=== PATIENT | male | born 1990 | race African-American/Black ===

== ENCOUNTER → 2016-08-11 | Outpatient (CLI) | payer MEDICAID ==
[~2016-08-11] MED LIST: BUPR8SUB SL; DOLU1TAB4 PO; HIV med; HYDR-3366 PO; IBUP800T23 PO; INDO75CA3 PO; MORPHINE SULFATE 4 MG/ML INJ IV PUSH ONE; NAPR-576 PO; PRESCOBIX PO; SUBUTEX PO; TENO150T PO; WALKER/ADULT/FO1 MIS; XARE10TA PO
== END ==
LOC: HEDF 15:55
DX: M25.552 Pain in left hip (principal); V49.9XXA Car occupant (driver) (passenger) injured in unspecified traffic accident, initial encounter; Y92.488 Other paved roadways as the place of occurrence of the external cause; Y99.8 Other external cause status
CPT/HCPCS: A0431; A0436; J2270

== ENCOUNTER 2016-08-24 08:27 | Observation (INO) | payer MEDICAID ==
[~2016-08-24] VITALS: Ht 193 cm; Wt 82.0 kg
[~2016-08-24 08:27] MED LIST changes: -BUPR8SUB SL; -DOLU1TAB4 PO; -HYDR-3366 PO; -INDO75CA3 PO; -MORPHINE SULFATE 4 MG/ML INJ IV PUSH ONE; -PRESCOBIX PO; -SUBUTEX PO; -TENO150T PO; -WALKER/ADULT/FO1 MIS; -XARE10TA PO
[2016-08-24 08:39] VITALS: BP 120/79; PULSE 87; RESP 14; TEMP 98.2; O2SAT 98; O2SAT 99
[2016-08-24] MEDS ORDERED: PRESCOBIX PO (08:45)
[2016-08-24] MEDS ORDERED: DOLU1TAB4 PO (08:45)
[2016-08-24] MEDS ORDERED: SUBUTEX PO (08:45)
[2016-08-24] MEDS ORDERED: TENO150T PO (08:45)
[2016-08-24] MEDS ORDERED: KETOROLAC TROMETHAMINE 30 MG/ML (IVP) VIAL IV PUSH ONE (08:45)
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
--- NOTE | 2016-08-24 09:30 | RADRPT ---
EXAM DATE/TIME: 08/24/2016 09:03 [facility] COMPARISON: No previous studies available for comparison. INDICATIONS : Right tibia pain after falling in the shower today. MEDICAL HISTORY : None. SURGICAL HISTORY : None. ENCOUNTER: Initial ACUITY: 1 day PAIN SCORE: 10/10 LOCATION: Right mid tibia. FINDINGS: Two view examination of the right tibia demonstrates no evidence of fracture or dislocation. Bony mi neralization is normal. The soft tissue structures are intact. CONCLUSION: Negative trauma study. Niels Holder MD on August 24, 2016 at 9:28 Board Certified Radiologist. This report was verified electronically.
--- NOTE | 2016-08-24 09:33 | RADRPT ---
EXAM DATE/TIME: 08/24/2016 08:59 [facility] COMPARISON: TIBIA/FIBULA RIGHT (AP/LAT), August 24, 2016, 9:03. INDICATIONS : Right hip pain after falling in the shower. MEDICAL HISTORY : None. SURGICAL HISTORY : None. ENCOUNTER: Initial ACUITY: 1 day PAIN SCORE: 10/10 LOCATION: Right hip joint. FINDINGS: AP and crosstable lateral views of the right hip were obtained as well as an AP view the pelvis. This demonstrate a mildly comminuted fracture deformity involving the right superior pubic rami. There is an ill-defined oblique fracture line as well as a lateral fracture fragment which is mildly displace d. There is overlying soft tissue swelling. The femoral head and pubic rami are intact. CONCLUSION: Mildly comminuted fracture involving the right superior pubic rami. Niels Holder MD on August 24, 2016 at 9:29 Board Certified Radiologist. This report was verified electronically.
[2016-08-24] MEDS ORDERED: KETOROLAC TROMETHAMINE 60 MG/2 ML (IM) VIAL IM ONE (10:15)
--- NOTE | 2016-08-24 10:45 | RADRPT ---
EXAM DATE/TIME: 08/24/2016 08:59 [facility] COMPARISON: HIP RIGHT (AP&LAT 2/3VWS) W AP PELVIS, August 24, 2016, 8:59. INDICATIONS : Right femur pain, fall in shower. MEDICAL HISTORY : None. SURGICAL HISTORY : None. ENCOUNTER: Initial ACUITY: 1 day PAIN SCORE: 10/10 LOCATION: Right proximal femur FINDINGS: AP and lateral views of the right femur were obtained and again demonstrate a comminuted fracture inv olving the right superior acetabulum. The femur is intact with no evidence of fracture. CONCLUSION: 1. No evidence of femur fracture. 2. The previously noted right acetabular fracture is again visualized. Niels Holder MD on August 24, 2016 at 10:42 Board Certified Radiologist. This report was verified electronically.
[2016-08-24 12:49] VITALS: BP 110/77; PULSE 86; RESP 16; O2SAT 97
--- NOTE | 2016-08-24 12:59 | RADRPT ---
EXAM DATE/TIME: 08/24/2016 12:31 [facility] COMPARISON: FEMUR RIGHT (AP & LAT/2VWS), August 24, 2016, 8:59. INDICATIONS : Right hip pain after trauma secondary to fall. Right acetabular fracture seen on plain film.. RADIATION DOSE: 29.94 CTDIvol (mGy) MEDICAL HISTORY : HIV. SURGICAL HISTORY : None. ENCOUNTER: Initial ACUITY: 1 day PAIN SCALE: 8/10 LOCATION: Right hip TECHNIQUE: Volumetric scanning of the hip was performed. Using automated exposure control and adjustment of the mA and/or kV according to patient size, radiation dose was kept as low as reasonably achievable to o btain optimal diagnostic quality images. FINDINGS: BONES: The known comminuted fracture of the right superior acetabulum is noted with a displaced fragment whi ch is rotated posteriorly and medially approximately 2 cm. The fragment measures up to approximately 3 x 1 cm. There are additional nondisplaced fracture lines through the superior medial and superior l ateral acetabulum. The pubic rami are intact. The femoral head is intact as well. JOINTS: No evidence of joint narrowing or effusion. SOFT TISSUES: Muscles, tendons and neurovascular structures are grossly unremarkable. No evidence of mass or foreig n body. There is a hematoma surrounding the acetabular fracture. CONCLUSION: Comminuted fracture of the superior acetabulum with displaced fragment. Niels Holder MD on August 24, 2016 at 12:54 Board Certified Radiologist. This report was verified electronically.
[2016-08-24 14:04] LABS: AUTOMATED NEUTROPHIL # 3.6 TH/MM3 (1.8-7.7); BASOPHIL % 0.6 % (0.0-2.0); EOSINOPHIL # 0.4 TH/MM3 (0-0.4); EOSINOPHIL % 5.5 % (0.0-4.0); HEMATOCRIT 33.3 % (39.0-51.0); HEMO FLAGS DIFF FINAL; LYMPH % 34.6 % (9.0-44.0); LYMPHOCYTE # 2.5 TH/MM3 (1.0-4.8); MEAN CELL VOLUME 87.3 FL (80.0-100.0); MEAN CORPUSCULAR HEMOGLOBIN 29.9 PG (27.0-34.0); MEAN CORPUSCULAR HGB CONC 34.3 % (32.0-36.0); MONO % 8.4 % (0.0-8.0); NEUT % 50.9 % (16.0-70.0); PLATELET COUNT 407 TH/MM3 (150-450); RED BLOOD COUNT 3.81 MIL/MM3 (4.50-5.90); RED CELL DISTRIBUTION WIDTH 13.4 % (11.6-17.2); WHITE BLOOD COUNT 7.1 TH/MM3 (4.0-11.0)
[2016-08-24 14:22] LABS: BICARBONATE 27.8 MEQ/L (21.0-32.0); POTASSIUM 4.4 MEQ/L (3.5-5.1)
[2016-08-24] MEDS ORDERED: oxyCODONE/ACETAMINOPHEN 5 MG/325 MG TAB PO ONE (17:30)
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
== END 2016-08-24 18:31 | disposition left against medical advice (07) ==
LOC: NEPC 08:27 → NEDA 16:47
PROVIDERS: ADMIT Internal Medicine; ATTEND Internal Medicine
DX: S32.401A Unspecified fracture of right acetabulum, initial encounter for closed fracture (principal); B20 Human immunodeficiency virus [HIV] disease; F12.90 Cannabis use, unspecified, uncomplicated; F17.210 Nicotine dependence, cigarettes, uncomplicated; F31.9 Bipolar disorder, unspecified; W18.2XXA Fall in (into) shower or empty bathtub, initial encounter; Y93.E1 Activity, personal bathing and showering
CPT/HCPCS: 73502; 73552; 73590; 73700; 80048; 85025; 86850; 86900; 86901; 96372; G0378; J1885

== ENCOUNTER 2016-08-24 23:38 | Inpatient (IN) | payer MEDICAID ==
[~2016-08-24] VITALS: Ht 193 cm; Wt 82.6 kg
[~2016-08-24 23:38] MED LIST changes: +DOLU1TAB4 PO; +PRESCOBIX PO; +SUBUTEX PO; +TENO150T PO
[2016-08-24 23:47] VITALS: BP 123/71; PULSE 80; RESP 16; TEMP 98.3; O2SAT 98
[2016-08-25] MEDS ORDERED: KETOROLAC TROMETHAMINE 30 MG/ML (IVP) VIAL IVP ONE (00:30)
[2016-08-25] MEDS ORDERED: SODIUM CHLORIDE 0.9% FLUSH 10 ML FLUSH IV FLUSH PRN ×2 (00:30→01:00)
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
--- NOTE | 2016-08-25 00:47 | RADRPT ---
EXAM DATE/TIME: 08/25/2016 00:13 [facility] COMPARISON: FEMUR RIGHT (AP & LAT/2VWS), August 24, 2016, 8:59. INDICATIONS : Fall. Already had xrays done earlier today, previous fracture. MEDICAL HISTORY : None. SURGICAL HISTORY : None. ENCOUNTER: Subsequent ACUITY: 3 days PAIN SCORE: 5/10 LOCATION: Right hip FINDINGS: A two view examination of the right hip was performed. There's been no significant change with The position and alignment of the fractures involving the right acetabulum. There continues to be goo d alignment at the right hip joint. No significant change compared to the prior earlier x-rays of the right hip. CONCLUSION: No significant change with the alignment and position of the fractures involving the right acetabulum . Benny Velasco MD on August 25, 2016 at 0:44 Board Certified Radiologist. This report was verified electronically.
[2016-08-25 01:00] VITALS: RESP 20; O2SAT 99
[2016-08-25] MEDS ORDERED: MORPHINE SULFATE 4 MG/ML INJ IV PUSH PRN ×2 (01:00→11:30)
[2016-08-25] MEDS ORDERED: NALOXONE HCL 0.4 MG/ML AMP IV PRN ×2 (01:00→11:30)
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
[2016-08-25 06:23] VITALS: BP 106/57; PULSE 70; RESP 20; O2SAT 96
[2016-08-25] MEDS: LORazepam 2 MG/ML VIAL IV PUSH PRN ×2 (06:46→16:09)
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
[2016-08-25] MEDS ORDERED: MIDAZOLAM HCL 2 MG/2 ML VIAL ONE ×2 (07:22→12:06)
[2016-08-25] MEDS ORDERED: HYDROmorphone HCL PF 2 MG/ML VIAL ONE ×2 (07:22→12:14)
[2016-08-25] MEDS ORDERED: ACETAMINOPHEN 1000 MG/100 ML VIAL IV ONE (07:22)
[2016-08-25] MEDS ORDERED: FAMOTIDINE 20 MG/2 ML VIAL ONE (07:22)
[2016-08-25] MEDS ORDERED: fentaNYL CITRATE 250 MCG/5 ML AMP ONE (07:22)
[2016-08-25] MEDS ORDERED: TRANEXAMIC ACID INJ 1,230 MG in SODIUM CHLORIDE 0.9% INJ 100 ML IV SCH (07:30)
[2016-08-25] MEDS ORDERED: CLINDAMYCIN PHOS 900 MG/6 ML VIAL ONE (08:19)
[2016-08-25] MEDS ORDERED: ceFAZolin 2 GM PREMIX 50 ML ONE (08:19)
[2016-08-25] MEDS: SODIUM CHLORIDE 0.9% FLUSH 10 ML FLUSH IV FLUSH SCH ×2 (09:00→21:00)
[2016-08-25] MEDS ORDERED: GENTAMICIN SULFATE 80 MG/2 ML VIAL ONE (09:40)
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
[2016-08-25] MEDS ORDERED: ACETAMINOPHEN/HYDROcodone 325 MG/10 MG TAB PO PRN (11:30)
[2016-08-25] MEDS ORDERED: MISCELLANEOUS NURSING INFORMATION XX PRN (11:30)
[2016-08-25] MEDS ORDERED: MISCELLANEOUS PHARMACY INFORMATION XX ONE (11:30)
[2016-08-25] MEDS ORDERED: ePHEDrine/NS 25 MG/5 ML SYR IV ONE (11:46)
[2016-08-25] MEDS ORDERED: NEOSTIGMINE 3 MG/3 ML SYR IV ONE (11:46)
[2016-08-25] MEDS ORDERED: PROPOFOL 200 MG/20 ML AMP IV ONE (11:46)
[2016-08-25] MEDS ORDERED: ONDANSETRON HCL 4 MG/2 ML VIAL IV PUSH ONE (11:46)
[2016-08-25] MEDS ORDERED: LACTATED RINGER'S 1000 ML INJ 2,000 ML IV ONE (11:47)
[2016-08-25] MEDS ORDERED: *MEPERIDINE 25 MG INJ VIAL PERIprocedural Use ONLY ONE (11:54)
[2016-08-25] MEDS ORDERED: *hydrOXYzine 25 MG VIAL PERIprocedural Use ONLY IM ONE (11:55)
[2016-08-25] MEDS ORDERED: LORazepam 2 MG/ML VIAL ONE (11:58)
[2016-08-25] MEDS ORDERED: *morphine SULFATE 8 MG/ML PERIprocedure ONLY ONE ×2 (12:02→12:12)
--- NOTE | 2016-08-25 12:32 | RADRPT ---
EXAM DATE/TIME: 08/25/2016 10:47 [facility] COMPARISON: HIP RIGHT (AP&LAT 2/3VWS) W AP PELVIS, August 24, 2016, 8:59. INDICATIONS : ORIF right acetabulum. MEDICAL HISTORY : None. SURGICAL HISTORY : None. ENCOUNTER: Subsequent ACUITY: 2 days PAIN SCORE: Non-responsive. LOCATION: Right acetabulum. FINDINGS: Multiple coned down views of the right hip and pelvis were obtained and demonstrate interval placemen t of 3 screw-plate fixation devices transfixing the right acetabular fracture. The fracture fragments are in near-anatomic alignment. CONCLUSION: Status post open a rigid internal fixation. Niels Holder MD on August 25, 2016 at 12:27 Board Certified Radiologist. This report was verified electronically.
[2016-08-25] MEDS: LACTATED RINGER'S 1000 ML INJ 1,000 ML IV SCH ×2 (12:55→21:18)
[2016-08-25] MEDS: MORPHINE SULFATE 30 MG/30 ML PCA IV SCH ×3 (12:55→21:50)
[2016-08-25] MEDS ORDERED: *HYDROmorphone PF 1 MG VIAL PERIprocedural Use ONLY ONE ×2 (13:09→13:25)
[2016-08-25] MEDS: ceFAZolin 2 GM PREMIX 50 ML IV SCH ×2 (13:10→19:40)
[2016-08-25] MEDS ORDERED: MORPHINE SULFATE 4 MG/ML INJ ONE (13:13)
[2016-08-25] MEDS: PCA - TOTAL MG MORPHINE DELIVERED PER SHIFT SCH ×2 (14:00→21:50)
--- NOTE | 2016-08-25 15:18 | HHI.PR ---
Addendum to Inpatient Note Addendum Reason: Additional Documentation Additional Information Patient was seen and examined by me. The patient complains of right hip pain. Patient is awake alert oriented 3, not in acute distress, somnolent. Lungs are clear bilaterally. S1-S2 regular rate and rhythm without murmurs rubs or gallops audible. Abdomen is soft, nontender. There is no edema in bilateral extremities and pedal pulses are intact and palpable. The patient status post ORIF of the right acetabulum. Continue pain control as per orthopedic surgery recommendations. The patient currently on a morphine pump. Blood pressure slightly elevated secondary most pain. Continue to monitor vital signs. Will check labs in a.m. Cong Christianson MD Aug 25, 2016 15:18
[2016-08-25 15:46] VITALS: BP 130/75; PULSE 72; RESP 16; TEMP 96.9; O2SAT 100
[2016-08-25] MEDS: KETOROLAC TROMETHAMINE 30 MG/ML (IVP) VIAL IV PUSH PRN (16:09)
[2016-08-25] MEDS: ACETAMINOPHEN/HYDROcodone 325 MG/10 MG TAB PO PRN (19:41)
[2016-08-25 20:05] VITALS: BP 122/63; PULSE 96; RESP 20; TEMP 96.3; O2SAT 100
[2016-08-25 20:08] VITALS: PULSE 83
[2016-08-26 00:46] VITALS: BP 137/66; PULSE 76; RESP 20; TEMP 97.2; O2SAT 100
[2016-08-26] MEDS: KETOROLAC TROMETHAMINE 30 MG/ML (IVP) VIAL IV PUSH PRN ×4 (00:48→22:55)
[2016-08-26] MEDS: LORazepam 2 MG/ML VIAL IV PUSH PRN ×3 (00:49→19:31)
[2016-08-26 04:11] VITALS: BP 112/58; PULSE 78; RESP 19; TEMP 97.9; O2SAT 99
[2016-08-26] MEDS: ceFAZolin 2 GM PREMIX 50 ML IV SCH ×3 (04:39→21:29)
[2016-08-26] MEDS: ACETAMINOPHEN/HYDROcodone 325 MG/10 MG TAB PO PRN ×4 (04:40→22:55)
[2016-08-26] MEDS: PCA - TOTAL MG MORPHINE DELIVERED PER SHIFT SCH ×3 (05:08→19:29)
[2016-08-26 05:57] LABS: HEMATOCRIT 29.7 % (39.0-51.0); MEAN CELL VOLUME 88.2 FL (80.0-100.0); MEAN CORPUSCULAR HEMOGLOBIN 29.2 PG (27.0-34.0); MEAN CORPUSCULAR HGB CONC 33.1 % (32.0-36.0); PLATELET COUNT 388 TH/MM3 (150-450); RED BLOOD COUNT 3.36 MIL/MM3 (4.50-5.90); RED CELL DISTRIBUTION WIDTH 13.1 % (11.6-17.2); REVIEW FLAG FINAL; WHITE BLOOD COUNT 10.4 TH/MM3 (4.0-11.0)
[2016-08-26 06:31] LABS: BICARBONATE 31.7 MEQ/L (21.0-32.0); MAGNESIUM 2.3 MG/DL (1.5-2.5); POTASSIUM 3.9 MEQ/L (3.5-5.1)
--- NOTE | 2016-08-26 06:48 | PD.ORT.PN ---
Subjective Subjective Remarks POD 1 s/p ORIF right acetabulum doing well. reports pain in right hip and has not been out of bed yet Objective Vitals Vital Signs Date Time Temp Pulse Resp B/P Pulse Ox O2 Delivery O2 Flow Rate FiO2 08/26/16 05:08 20 08/26/16 04:11 97.9 78 19 112/58 99 08/26/16 00:46 97.2 76 20 137/66 100 08/25/16 21:50 7 08/25/16 21:50 18 08/25/16 20:08 83 08/25/16 20:05 96.3 96 20 122/63 100 08/25/16 16:20 16 08/25/16 15:46 96.9 72 16 130/75 100 08/25/16 14:00 78 18 148/91 100 Nasal Cannula 2 08/25/16 13:30 80 18 144/88 100 Nasal Cannula 2 08/25/16 13:15 91 20 150/88 100 Nasal Cannula 3 08/25/16 13:00 98.5 85 22 136/84 100 Nasal Cannula 3 08/25/16 12:55 20 08/25/16 12:45 60 15 159/92 96 Nasal Cannula 3 08/25/16 12:30 62 24 161/88 100 Nasal Cannula 3 08/25/16 12:15 78 28 143/88 100 Nasal Cannula 3 08/25/16 12:00 90 36 154/110 100 Nasal Cannula 3 08/25/16 11:48 98.4 82 16 151/102 100 Nasal Cannula 3 I/O 08/25/16 08/25/16 08/25/16 08/26/16 08/26/16 08/26/16 07:00 15:00 23:00 07:00 15:00 23:00 Intake Total 2200 ml 810 ml 240 ml Output Total 1665 ml 1995 ml 15 ml Balance 535 ml -1185 ml 225 ml Intake Oral 480 ml IV Total 200 ml 330 ml 240 ml Other 2000 ml Output Urine Total 1450 ml 1975 ml Drainage Total 15 ml 20 ml 15 ml Estimated Blood Loss 200 ml # Bowel Movements 0 Result Diagram: 08/26/16 0527 08/26/16 0527 Imaging Last 24 hours Impressions Hip X-Ray 08/25/16 0000 Signed Impressions: Service Date/Time: Thursday, August 25, 2016 00:13 - CONCLUSION: No significant change with the alignment and position of the fractures involving the right acetabulum. Benny Velasco MD Objective Remarks RLE: dressings clean and dry.intact. + drain. NVI Assessment & Plan Assessment and Plan 1) Right Acetabulum Fx s/p ORIF - POD 1 -TTWB -daily dressing changes POD 2 -knee brace while in bed -posterior hip precautions -plan for DC home satu/sun -Indomethacin 75mg 1 PO daily x 6 weeks -f/u with [facility] or [facility] in 2 weeks Daljit Vivas Aug 26, 2016 06:48
[2016-08-26] MEDS ORDERED: WALKER/ADULT/FO1 MIS (06:50)
[2016-08-26] MEDS ORDERED: XARE10TA PO (06:50)
[2016-08-26] MEDS ORDERED: HYDR-3366 PO (06:52)
[2016-08-26] MEDS ORDERED: INDO75CA3 PO (06:52)
[2016-08-26] MEDS: LACTATED RINGER'S 1000 ML INJ 1,000 ML IV SCH ×2 (07:18→17:18)
[2016-08-26 08:00] VITALS: BP 140/75; PULSE 81; RESP 16; TEMP 97.6; O2SAT 99
[2016-08-26] MEDS: INDOMETHACIN 75 MG CONTROLLED RELEASE CAP PO SCH (09:24)
[2016-08-26] MEDS: SODIUM CHLORIDE 0.9% FLUSH 10 ML FLUSH IV FLUSH SCH ×2 (09:28→19:29)
[2016-08-26] MEDS: MORPHINE SULFATE 30 MG/30 ML PCA IV SCH ×2 (09:33→21:32)
[2016-08-26] MEDS: ENOXAPARIN SODIUM 30 MG/0.3 ML SYRINGE SQ SCH ×2 (10:35→21:29)
[2016-08-26 12:00] VITALS: BP 129/78; PULSE 77; RESP 16; TEMP 97.8; O2SAT 96
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
[2016-08-26 19:09] VITALS: BP 118/63; PULSE 82; RESP 16; TEMP 98; O2SAT 99
[2016-08-26 20:00] VITALS: BP 138/81; PULSE 79; RESP 18; TEMP 97.9; O2SAT 100
[2016-08-26] MEDS ORDERED: BUPR8SUB SL (21:43)
[2016-08-27] VITALS: BP 118/58; PULSE 66; RESP 17; TEMP 98; O2SAT 98
[2016-08-27] MEDS: LACTATED RINGER'S 1000 ML INJ 1,000 ML IV SCH ×2 (00:13→13:18)
[2016-08-27] MEDS: LORazepam 2 MG/ML VIAL IV PUSH PRN ×3 (03:29→23:38)
[2016-08-27 04:00] VITALS: BP 116/69; PULSE 85; RESP 16; TEMP 97.2; O2SAT 98
[2016-08-27] MEDS: ceFAZolin 2 GM PREMIX 50 ML IV SCH ×3 (05:04→19:36)
[2016-08-27] MEDS: ACETAMINOPHEN/HYDROcodone 325 MG/10 MG TAB PO PRN ×4 (05:05→23:38)
[2016-08-27] MEDS: KETOROLAC TROMETHAMINE 30 MG/ML (IVP) VIAL IV PUSH PRN ×4 (05:05→23:38)
[2016-08-27] MEDS: PCA - TOTAL MG MORPHINE DELIVERED PER SHIFT SCH ×3 (05:05→22:00)
--- NOTE | 2016-08-27 06:56 | PD.ORT.PN ---
Subjective Subjective Remarks Austin is postop day #2 status post open reduction internal fixation of right acetabular fracture. Pain is relatively well controlled. He is resting comfortably. Objective Vitals Vital Signs Date Time Temp Pulse Resp B/P Pulse Ox O2 Delivery O2 Flow Rate FiO2 08/27/16 05:05 18 08/27/16 04:00 97.2 85 16 116/69 98 08/27/16 00:00 98.0 66 17 118/58 98 08/26/16 21:40 18 08/26/16 21:32 18 08/26/16 20:00 97.9 79 18 138/81 100 08/26/16 19:29 18 08/26/16 19:09 98.0 82 16 118/63 99 08/26/16 18:48 Room Air 08/26/16 14:00 16 08/26/16 12:00 97.8 77 16 129/78 96 08/26/16 09:33 16 08/26/16 08:00 97.6 81 16 140/75 99 I/O 08/26/16 08/26/16 08/26/16 08/27/16 08/27/16 08/27/16 07:00 15:00 23:00 07:00 15:00 23:00 Intake Total 480 ml 600 ml 1154 ml 1081 ml Output Total 565 ml 525 ml 50 ml Balance -85 ml 600 ml 629 ml 1031 ml Intake Oral 240 ml 600 ml 720 ml 720 ml IV Total 240 ml 434 ml 361 ml Output Urine Total 550 ml 500 ml Drainage Total 15 ml 25 ml 50 ml # Voids 4 2 # Bowel Movements 0 0 Result Diagram: 08/26/16 0527 08/26/16 0527 Imaging Last 24 hours Impressions Hip X-Ray 08/25/16 0000 Signed Impressions: Service Date/Time: Thursday, August 25, 2016 00:13 - CONCLUSION: No significant change with the alignment and position of the fractures involving the right acetabulum. Benny Velasco MD Objective Remarks RLE: dressings clean and dry.intact. + drain. NVI. He is able to actively dorsiflex and plantarflex his ankle. Assessment & Plan Assessment and Plan 1) Right Acetabulum Fx s/p ORIF - POD 2 -TTWB -daily dressing changes POD 2--DC drain today -knee brace while in bed -posterior hip precautions -plan for DC home tue or Tuesday -Indomethacin 75mg 1 PO daily x 6 weeks -f/u with [facility] or [facility] in 2 weeks -Jonnathan Pate MD Aug 27, 2016 06:56
[2016-08-27] MEDS ORDERED: diphenhydrAMINE HCL 25 MG CAP PO PRN (07:00)
[2016-08-27 07:42] VITALS: BP 126/74; PULSE 82; RESP 17; TEMP 96.7; O2SAT 98
[2016-08-27] MEDS: INDOMETHACIN 75 MG CONTROLLED RELEASE CAP PO SCH (07:51)
[2016-08-27] MEDS: SODIUM CHLORIDE 0.9% FLUSH 10 ML FLUSH IV FLUSH SCH ×2 (07:52→19:36)
[2016-08-27] MEDS: ENOXAPARIN SODIUM 30 MG/0.3 ML SYRINGE SQ SCH ×2 (11:06→23:37)
[2016-08-27 11:31] VITALS: BP 131/73; PULSE 80; RESP 17; TEMP 97.7; O2SAT 98
[2016-08-27] MEDS: MORPHINE SULFATE 30 MG/30 ML PCA IV SCH (13:13)
[2016-08-27 15:58] VITALS: BP 107/54; PULSE 73; RESP 17; TEMP 96.5; O2SAT 96
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
[2016-08-27 19:00] VITALS: BP 132/84; PULSE 92; RESP 17; TEMP 98.6; O2SAT 98
[2016-08-28] VITALS: BP 136/71; PULSE 59; RESP 16; TEMP 96.1; O2SAT 95
[2016-08-28 04:00] VITALS: BP 123/62; PULSE 78; RESP 16; TEMP 96.1; O2SAT 99
[2016-08-28] MEDS: ceFAZolin 2 GM PREMIX 50 ML IV SCH (05:09)
[2016-08-28] MEDS: KETOROLAC TROMETHAMINE 30 MG/ML (IVP) VIAL IV PUSH PRN (05:09)
[2016-08-28] MEDS: ACETAMINOPHEN/HYDROcodone 325 MG/10 MG TAB PO PRN (05:09)
[2016-08-28] MEDS: PCA - TOTAL MG MORPHINE DELIVERED PER SHIFT SCH (06:00)
--- NOTE | 2016-08-28 06:33 | PD.ORT.PN ---
Subjective Subjective Remarks pt sleeping comfortably upon entering room once awake, no complaints other than pain Objective Vitals Vital Signs Date Time Temp Pulse Resp B/P Pulse Ox O2 Delivery O2 Flow Rate FiO2 08/28/16 06:00 17 08/28/16 04:00 96.1 78 16 123/62 99 08/28/16 00:00 96.1 59 16 136/71 95 08/27/16 22:00 17 08/27/16 19:00 98.6 92 17 132/84 98 08/27/16 15:58 96.5 73 17 107/54 96 08/27/16 11:31 97.7 80 17 131/73 98 08/27/16 07:42 96.7 82 17 126/74 98 I/O 08/27/16 08/27/16 08/27/16 08/28/16 08/28/16 08/28/16 07:00 15:00 23:00 07:00 15:00 23:00 Intake Total 1081 ml 480 ml 480 ml 480 ml Output Total 50 ml 450 ml 900 ml 200 ml Balance 1031 ml 30 ml -420 ml 280 ml Intake Oral 720 ml 480 ml 480 ml 480 ml IV Total 361 ml Output Urine Total 450 ml 900 ml 200 ml Drainage Total 50 ml # Voids 2 # Bowel Movements 0 0 0 Result Diagram: 08/26/16 0527 08/26/16 0527 Imaging Last 24 hours Impressions Hip X-Ray 08/25/16 0000 Signed Impressions: Service Date/Time: Thursday, August 25, 2016 00:13 - CONCLUSION: No significant change with the alignment and position of the fractures involving the right acetabulum. Benny Velasco MD Objective Remarks seen by Dr. Parish Frazier RLE: dressings clean and dry, intact +NVI. Assessment & Plan Assessment and Plan 1) Right Acetabulum Fx s/p ORIF - POD 3 -TTWB -daily dressing change -knee brace while in bed -posterior hip precautions -plan for DC home tue or Tuesday -Indomethacin 75mg 1 PO daily x 6 weeks -f/u with [facility] or [facility] in 2 weeks -Sharon Aguilar Aug 28, 2016 06:33
[2016-08-28 07:35] VITALS: BP 100/51; PULSE 77; RESP 17; TEMP 97.6; O2SAT 98
[2016-08-28] MEDS: SODIUM CHLORIDE 0.9% FLUSH 10 ML FLUSH IV FLUSH SCH (09:00)
[2016-08-28] MEDS: LACTATED RINGER'S 1000 ML INJ 1,000 ML IV SCH (09:18)
[2016-08-28] MEDS: ENOXAPARIN SODIUM 30 MG/0.3 ML SYRINGE SQ SCH (10:47)
[2016-08-28] MEDS: INDOMETHACIN 75 MG CONTROLLED RELEASE CAP PO SCH (10:47)
[2016-08-28] MEDS: MORPHINE SULFATE 30 MG/30 ML PCA IV SCH (10:51)
[2016-08-28 11:59] VITALS: BP 124/69; PULSE 74; RESP 17; TEMP 97.5; O2SAT 98
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
== END 2016-08-28 13:25 | disposition left against medical advice (07) | DRG 517 ==
LOC: NEPD 23:38 → NEDA 08-25 00:59 → N06B 08-25 14:36 → OBSVTOIN 08-25 15:15
PROVIDERS: ADMIT Hospitalist; ATTEND Hospitalist
PROC: 0QS404Z Reposition Right Acetabulum with Internal Fixation Device, Open Approach (ICD-10-PCS; principal; 2016-08-25 09:04)
DX: S32.441A Displaced fracture of posterior column [ilioischial] of right acetabulum, initial encounter for closed fracture (principal); S32.591D Other specified fracture of right pubis, subsequent encounter for fracture with routine healing; F31.9 Bipolar disorder, unspecified; V49.9XXA Car occupant (driver) (passenger) injured in unspecified traffic accident, initial encounter; Y92.410 Unspecified street and highway as the place of occurrence of the external cause; Y93.9 Activity, unspecified; Y99.9 Unspecified external cause status; F90.9 Attention-deficit hyperactivity disorder, unspecified type; Z88.1 Allergy status to other antibiotic agents; Z21 Asymptomatic human immunodeficiency virus [HIV] infection status; F42.9 Obsessive-compulsive disorder, unspecified; F43.10 Post-traumatic stress disorder, unspecified; R29.6 Repeated falls; R20.0 Anesthesia of skin; F17.210 Nicotine dependence, cigarettes, uncomplicated; W18.2XXA Fall in (into) shower or empty bathtub, initial encounter; Y93.E1 Activity, personal bathing and showering; Z76.5 Malingerer [conscious simulation]
CPT/HCPCS: 73502; 73503; 73552; 73590; 73700; 76000; 80048; 80307; 83735; 84100; 85025; 85027; 86850; 86900; 86901; 94150; 96372; 96374; C1713; G0378; J0131; J0690; J1170; J1580; J1650; J1885; J2060; J2175; J2250; J2270; J2405; J2710; J3010; J3410; J7120

== ENCOUNTER 2017-03-24 20:43 | Emergency (ER) | payer MEDICAID ==
[~2017-03-24 20:43] MED LIST changes: +BUPR8SUB SL; -DOLU1TAB4 PO; -HIV med; +HYDR-3366 PO; -IBUP800T23 PO; +INDO75CA3 PO; -NAPR-576 PO; -PRESCOBIX PO; -TENO150T PO; +WALKER/ADULT/FO1 MIS; +XARE10TA PO
[2017-03-24 20:47] VITALS: BP 119/59; PULSE 94; RESP 16; TEMP 99.5; O2SAT 97
== END 2017-03-24 20:54 | disposition left against medical advice (07) ==
LOC: NED 20:43
DX: Z00.8 Encounter for other general examination (principal); Z53.21 Procedure and treatment not carried out due to patient leaving prior to being seen by health care provider

== ENCOUNTER 2017-06-15 00:32 | Emergency (ER) | payer MEDICAID ==
[~2017-06-15] VITALS: Ht 193 cm; Wt 82.0 kg
[2017-06-15] MEDS ORDERED: KETOROLAC TROMETHAMINE 30 MG/ML (IVP) VIAL IV PUSH ONE (00:45)
[2017-06-15] MEDS ORDERED: MORPHINE SULFATE 2 MG/ML INJ IV PUSH ONE (00:45)
[2017-06-15 00:49] VITALS: BP 147/91; PULSE 72; RESP 22; TEMP 98.7; O2SAT 100
--- NOTE | 2017-06-15 01:13 | RADRPT ---
EXAM DATE/TIME: 06/15/2017 00:51 [facility] COMPARISON: SHOULDER RIGHT LTD (2VWS), November 29, 2015, 16:10. INDICATIONS : Right shoulder pain post fall. MEDICAL HISTORY : HIV SURGICAL HISTORY : ORIF right acetabulum ENCOUNTER: Initial ACUITY: 1 day PAIN SCORE: 10/10 LOCATION: Right upper extremity FINDINGS: Two view examination of the right shoulder demonstrates no evidence of fracture or dislocation. The glenohumeral and acromioclavicular joints are maintained. Bony mineralization is normal. CONCLUSION: No acute disease. Dereck Freeman MD on June 15, 2017 at 1:11 Board Certified Radiologist. This report was verified electronically.
--- NOTE | 2017-06-15 01:14 | RADRPT ---
EXAM DATE/TIME: 06/15/2017 00:56 [facility] COMPARISON: No previous studies available for comparison. INDICATIONS : Right elbow pain post fall. MEDICAL HISTORY : HIV SURGICAL HISTORY : ORIF right acetabulum ENCOUNTER: Initial ACUITY: 1 day PAIN SCORE: 10/10 LOCATION: Right upper extremity FINDINGS: Anterior and posterior fat pad signs are identified characteristic of elbow joint effusion. A nondisp laced radial head fracture is suspected and can be confirmed with CT. CONCLUSION: Elbow joint effusion and findings suspect for radial head fracture. CT would be helpful for confirmat ion. Dereck Freeman MD on June 15, 2017 at 1:11 Board Certified Radiologist. This report was verified electronically.
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
== END 2017-06-15 02:39 | disposition home or self-care (01) ==
LOC: NEPC 00:32
DX: S46.911A Strain of unspecified muscle, fascia and tendon at shoulder and upper arm level, right arm, initial encounter (principal); M25.421 Effusion, right elbow; F90.9 Attention-deficit hyperactivity disorder, unspecified type; F31.9 Bipolar disorder, unspecified; F41.9 Anxiety disorder, unspecified; F17.210 Nicotine dependence, cigarettes, uncomplicated; Z21 Asymptomatic human immunodeficiency virus [HIV] infection status; V18.4XXA Pedal cycle driver injured in noncollision transport accident in traffic accident, initial encounter
CPT/HCPCS: 73030; 73070; 96374; 96375; 99284; J1885; J2270

== ENCOUNTER 2017-09-13 03:53 | Observation (INO) | payer MEDICAID ==
[2017-09-13 03:55] VITALS: BP 141/91; PULSE 76; RESP 15; TEMP 99.5; O2SAT 98
[2017-09-13] MEDS ORDERED: DOLU1TAB4 PO (04:14)
[2017-09-13] MEDS ORDERED: NITROGLYCERIN 0.4 MG SL 25 TABS/BTL SL ONE (04:30)
[2017-09-13] MEDS ORDERED: SODIUM CHLORID 0.9% 500 ML INJ 500 ML IV ONE (04:30)
[2017-09-13] MEDS ORDERED: SUCRALFATE 1 GM/10 ML CUP PO ONE (04:30)
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
[2017-09-13] MEDS ORDERED: CLINDAMYCIN 900 MG/NS PREMIX 50 ML IV ONE (05:00)
[2017-09-13] MEDS ORDERED: SODIUM CHLOR 0.9% 1000 ML INJ 1,000 ML IV ONE (05:00)
[2017-09-13] MEDS ORDERED: KETOROLAC TROMETHAMINE 30 MG/ML (IVP) VIAL IV PUSH ONE (05:00)
[2017-09-13] MEDS ORDERED: PIPERACIL-TAZO 4.5 GM PREMIX 100 ML IV ONE (05:00)
[2017-09-13 05:14] LABS: AUTOMATED NEUTROPHIL # 9.7 TH/MM3 (1.8-7.7); BASOPHIL # 0.1 TH/MM3 (0-0.2); BASOPHIL % 0.5 % (0.0-2.0); EOSINOPHIL # 0.1 TH/MM3 (0-0.4); EOSINOPHIL % 0.6 % (0.0-4.0); HEMOGLOBIN 13.3 GM/DL (13.0-17.0); LYMPH % 17.3 % (9.0-44.0); LYMPHOCYTE # 2.2 TH/MM3 (1.0-4.8); MEAN CELL VOLUME 84.1 FL (80.0-100.0); MEAN CORPUSCULAR HGB CONC 33.3 % (32.0-36.0); MONO % 6.2 % (0.0-8.0); MONOCYTE # 0.8 TH/MM3 (0-0.9); NEUT % 75.4 % (16.0-70.0); PLATELET COUNT 292 TH/MM3 (150-450); RED BLOOD COUNT 4.76 MIL/MM3 (4.50-5.90); RED CELL DISTRIBUTION WIDTH 13.3 % (11.6-17.2); WHITE BLOOD COUNT 12.9 TH/MM3 (4.0-11.0)
[2017-09-13 05:40] LABS: BICARBONATE 25.2 MEQ/L (21.0-32.0); CALCIUM 9.1 MG/DL (8.5-10.1); CREATININE 0.96 MG/DL (0.60-1.30)
[2017-09-13] MEDS ORDERED: IOHEXOL 350 MG/ML 10 ML VIAL (for RAD DIAG) IVCONTRAST ONE (06:40)
[2017-09-13] MEDS ORDERED: SENNOSIDES 8.6 MG TAB PO PRN (06:45)
[2017-09-13] MEDS ORDERED: BISACODYL 10 MG SUPP RECTAL PRN (06:45)
[2017-09-13] MEDS ORDERED: MAGNESIUM HYDROXIDE SUSP 30 ML CUP PO PRN (06:45)
[2017-09-13] MEDS ORDERED: ONDANSETRON HCL 4 MG/2 ML VIAL IVP PRN (06:45)
[2017-09-13] MEDS ORDERED: SODIUM CHLORIDE 0.9% FLUSH 10 ML FLUSH IV FLUSH PRN (06:45)
[2017-09-13] MEDS ORDERED: LACTULOSE SYRUP 20 GM/30 ML CUP PO PRN (06:45)
[2017-09-13] MEDS ORDERED: NALOXONE HCL 0.4 MG/ML AMP IV PUSH PRN (06:45)
[2017-09-13] MEDS ORDERED: ACETAMINOPHEN 325 MG TAB PO PRN ×2 (06:45→13:00)
--- NOTE | 2017-09-13 06:53 | RADRPT ---
EXAM DATE/TIME: 09/13/2017 06:09 [place] COMPARISON: No previous studies available for comparison. INDICATIONS : Left hand pain after IV drug use yesterday. IV CONTRAST: 100 cc Omnipaque 350 (iohexol) IV RADIATION DOSE: 53.66 CTDIvol (mGy) MEDICAL HISTORY : HIV. Hepatitis C. IV drug use SURGICAL HISTORY : Right hip ENCOUNTER: Initial ACUITY: 1 day PAIN SCALE: 8/10 LOCATION: Left hand TECHNIQUE: Volumetric scanning of the hand was performed. Using automated exposure control and adjustment of th e mA and/or kV according to patient size, radiation dose was kept as low as reasonably achievable to obtain optimal diagnostic quality images. DICOM format image data is available electronically for re view and comparison. FINDINGS: No acute bony abnormalities are identified. No fracture or evidence for osteomyelitis. There are edematous changes in the subcutaneous tissues especially on the radial aspect of the hand m ost characteristic of cellulitis. No discrete abscess identified. CONCLUSION: 1. Probable cellulitis of the hand especially in the dorsum of the hand. No acute bony abnormalities. No radiopaque foreign bodies identified. Kyle Mejia MD on September 13, 2017 at 6:49 Board Certified Radiologist. This report was verified electronically.
[2017-09-13 07:31] VITALS: BP 132/72; PULSE 63; RESP 20; TEMP 98.3; O2SAT 98
[2017-09-13] MEDS ORDERED: SODIUM CHLORIDE 0.9% FLUSH 10 ML FLUSH IV FLUSH SCH (09:00)
[2017-09-13] MEDS ORDERED: DOCUSATE SODIUM 50 MG/SENNA 8.6 MG TAB PO SCH (09:00)
--- NOTE | 2017-09-13 09:11 | HHI.HP ---
[facility] Service [facility] Primary Care Physician No Primary Care Physician Admission Diagnosis Left hand cellulitis; IVDA Diagnoses: (1) Cellulitis of hand, left (2) IV drug abuse Chief Complaint: Left hand pain Travel History International Travel<30 Days: No Contact w/Intl Traveler <30 Da: No Traveled to Known Affected Are: No Sepsis Criteria SIRS Criteria (2 or more): WBC > 45225, < 4000 or > 10% bands History of Present Illness The patient is a 26-year-old male with history of IV drug abuse who presented to the emergency department complaining of pain and swelling of his left hand. He states that at 3 PM yesterday he injected heroin into his left hand. The pain and swelling started shortly thereafter. He denies fever, chills, night sweats. Denies chest pain, dyspnea, cough. Review of Systems Constitutional: DENIES: Fever, Chills, Night Sweats Eyes: DENIES: Blurred vision, Vision loss Ears, nose, mouth, throat: DENIES: Hearing loss Respiratory: DENIES: Cough, Wheezing, Sputum production, Shortness of breath Cardiovascular: DENIES: Chest pain, Palpitations, Dyspnea on Exertion, Lower Extremity Edema Gastrointestinal: DENIES: Abdominal pain, Constipation, Diarrhea, Nausea, Vomiting Genitourinary: DENIES: Urinary frequency, Urinary incontinence, Urgency, Hematuria, Dysuria, Nocturia Musculoskeletal: DENIES: Joint pain, Muscle aches Integumentary: DENIES: Pruritus, Rash Hematologic/lymphatic: DENIES: Bruising Neurologic: DENIES: Headache Past Family Social History Past Medical History IV drug abuse HIV Hepatitis C ADHD Bipolar disorder Past Surgical History Right hip replacement Left arm surgery Reported Medications Tivicay (Dolutegravir Sodium) Unknown Strength Tab Unknown Dose PO BID Allergies: Coded Allergies: vancomycin (Unverified Allergy, Intermediate, HIVES, 09/13/17) Uncoded Allergies: No narcotics (Adverse Reaction, Unknown, 08/25/16) Patient in recovery- request no narcotic Family History Patient denies significant family medical history. Social History Denies alcohol use. Admits to IV heroin use, most recently yesterday. Smokes about a half pack per day of cigarettes. Physical Exam Vital Signs Vital Signs Date Time Temp Pulse Resp B/P (MAP) Pulse Ox O2 Delivery O2 Flow Rate FiO2 09/13/17 07:32 20 09/13/17 07:31 98.3 63 20 132/72 (92) 98 Room Air 09/13/17 03:55 99.5 76 15 141/91 (108) 98 Physical Exam GENERAL: Well-nourished, well-developed male in no acute distress. HEENT: Normocephalic, atraumatic. Pupils are dilated, but reactive. Extraocular movements intact. No scleral icterus. No injection or drainage. Oropharynx is clear. Mucous membranes are moist. CARDIOVASCULAR: Regular rate and rhythm without murmurs, gallops, or rubs. RESPIRATORY: Clear to auscultation. No wheezes, rales, or rhonchi. Breathing is non-labored. GASTROINTESTINAL: Abdomen soft, non-tender, nondistended. EXTREMITIES: No lower extremity edema. No calf tenderness. Left hand swollen. Good capillary refill in the fingers of the left hand. The dorsum of the hand is tender. Patient is able to move all of his fingers, but somewhat limited due to swelling and pain. PSYCH: Alert and oriented x 3. Laboratory Laboratory Tests Test 09/13/17 05:00 White Blood Count 12.9 Red Blood Count 4.76 Hemoglobin 13.3 Hematocrit 40.0 Mean Corpuscular Volume 84.1 Mean Corpuscular Hemoglobin 28.0 Mean Corpuscular Hemoglobin Concent 33.3 Red Cell Distribution Width 13.3 Platelet Count 292 Mean Platelet Volume 9.0 Neutrophils (%) (Auto) 75.4 Lymphocytes (%) (Auto) 17.3 Monocytes (%) (Auto) 6.2 Eosinophils (%) (Auto) 0.6 Basophils (%) (Auto) 0.5 Neutrophils # (Auto) 9.7 Lymphocytes # (Auto) 2.2 Monocytes # (Auto) 0.8 Eosinophils # (Auto) 0.1 Basophils # (Auto) 0.1 CBC Comment DIFF FINAL Differential Comment Blood Urea Nitrogen 10 Creatinine 0.96 Random Glucose 98 Calcium Level 9.1 Sodium Level 135 Potassium Level 4.1 Chloride Level 99 Carbon Dioxide Level 25.2 Anion Gap 11 Estimat Glomerular Filtration Rate 114 Lactic Acid Level 0.8 Date/Time Source Procedure Growth Status 5/15/18 05:05 Blood Peripheral Aerobic Blood Culture Pending Received 09/13/17 05:05 Blood Peripheral Anaerobic Blood Culture Pending Received Result Diagram: 09/13/17 0500 09/13/17 0500 Imaging Last Impressions Upper Extremity CT 09/13/17 0000 Signed Impressions: Service Date/Time: Wednesday, September 13, 2017 06:09 - CONCLUSION: 1. Probable cellulitis of the hand especially in the dorsum of the hand. No acute bony abnormalities. No radiopaque foreign bodies identified. MD Shiva Cr VTE Risk Assessment Caprini VTE Risk Assessment: No/Low Risk (score <= 1) Caprini Risk Assessment Model Point Value = 1 Point Value = 2 Point Value = 3 Point Value = 5 Age 41-60 Minor surgery BMI > 25 kg/m2 Swollen legs Varicose veins or History of unexplained or recurrent spontaneous Oral contraceptives or hormone replacement Sepsis (< 1 month) Serious lung disease, including pneumonia (< 1 month) Abnormal pulmonary function Acute myocardial infarction Congestive heart failure (< 1 month) History of inflammatory bowel disease Medical patient at bed rest Age 61-74 Arthroscopic surgery Major open surgery (> 45 min) Laparoscopic surgery (> 45 min) Malignancy Confined to bed (> 72 hours) Immobilizing plaster cast Central venous access Age >= 75 History of VTE Family history of VTE Factor V Leiden Prothrombin [id number] Lupus anticoagulant Anticardiolipin antibodies Elevated serum homocysteine Heparin-induced thrombocytopenia Other congenital or acquired thrombophilia Stroke (< 1 month) Elective arthroplasty Hip, pelvis, or leg fracture Acute spinal cord injury (< 1 month) Prophylaxis Regimen Total Risk Factor Score Risk Level Prophylaxis Regimen 0-1 Low Early ambulation 2 Moderate Order ONE of the following: *Sequential Compression Device (SCD) *Heparin 5000 units SQ BID 3-4 Higher Order ONE of the following medications: *Heparin 5000 units SQ TID *Enoxaparin/Lovenox 40 mg SQ daily (WT < 150 kg, CrCl > 30 mL/min) *Enoxaparin/Lovenox 30 mg SQ daily (WT < 150 kg, CrCl > 10-29 mL/min) *Enoxaparin/Lovenox 30 mg SQ BID (WT < 150 kg, CrCl > 30 mL/min) AND/OR *Sequential Compression Device (SCD) 5 or more Highest Order ONE of the following medications: *Heparin 5000 units SQ TID (Preferred with Epidurals) *Enoxaparin/Lovenox 40 mg SQ daily (WT < 150 kg, CrCl > 30 mL/min) *Enoxaparin/Lovenox 30 mg SQ daily (WT < 150 kg, CrCl > 10-29 mL/min) *Enoxaparin/Lovenox 30 mg SQ BID (WT < 150 kg, CrCl > 30 mL/min) AND *Sequential Compression Device (SCD) Assessment and Plan Assessment and Plan 1. Left hand cellulitis: Continue IV antibiotics. CT shows no evidence of abscess. Keep hand elevated. Patient has listed allergy to vancomycin, but states that it just has to be run slowly. He does report rash with itching with previous administration of vancomycin. 2. IV drug abuse: Patient has been counseled. Most recently IV heroin use yesterday, injected into the left hand. Caution with narcotics. 3. Tobacco abuse: Counseled to quit smoking. 4. HIV: Continue Tivicay. 5. DVT prophylaxis: MUSTAPHA [place]. Curly Chilel MD September 13, 2017 09:11
[2017-09-13] MEDS ORDERED: PIPERACIL-TAZO 3.375 GM PREMIX 50 ML IV SCH (11:00)
[2017-09-13] MEDS ORDERED: CLINDAMYCIN 900 MG/NS PREMIX 50 ML IV SCH (11:00)
[2017-09-13 12:04] VITALS: BP 132/74; PULSE 65; RESP 16; TEMP 98.4; O2SAT 99
[2017-09-13] MEDS ORDERED: IBUPROFEN 600 MG TAB PO PRN (13:00)
[2017-09-13] MEDS ORDERED: DOLUTEGRAVIR SODIUM 50 MG TAB PO SCH (21:00)
== END 2017-09-13 16:13 | disposition left against medical advice (07) ==
LOC: NEPC 03:53 → NEDA 06:45 → NEPFCDU 12:01
PROVIDERS: ADMIT Hospitalist; ATTEND Hospitalist
DX: L03.114 Cellulitis of left upper limb (principal); F11.10 Opioid abuse, uncomplicated; B19.20 Unspecified viral hepatitis C without hepatic coma; F31.9 Bipolar disorder, unspecified; F41.9 Anxiety disorder, unspecified; F17.210 Nicotine dependence, cigarettes, uncomplicated
CPT/HCPCS: 73201; 80048; 80307; 83605; 85025; 87040; 96361; 96365; 96375; 96376; 99285; G0378; J1885; J2543; J7030; J7040; Q9967